=== PATIENT | female | born 1980 | race Caucasian/White ===

== ENCOUNTER 2016-08-29 14:19 | Emergency (ER) | payer BC, MEDICAID ==
[2016-08-29] MEDS ORDERED: Ibuprofen 200 MG TAB ONE (15:43)
== END 2016-08-29 15:56 | disposition home or self-care (01) ==
LOC: ER 14:19
DX: S93.401A Sprain of unspecified ligament of right ankle, initial encounter (principal); W01.0XXA Fall on same level from slipping, tripping and stumbling without subsequent striking against object, initial encounter; Y93.01 Activity, walking, marching and hiking; Y92.009 Unspecified place in unspecified non-institutional (private) residence as the place of occurrence of the external cause; E11.9 Type 2 diabetes mellitus without complications; Z79.84 Long term (current) use of oral hypoglycemic drugs; Z87.891 Personal history of nicotine dependence